=== PATIENT | male | born 1955 | race Caucasian/White ===

== ENCOUNTER 2021-05-01 22:07 | Inpatient (IN) | payer OTHER, MEDICARE ==
[~2021-05-01] VITALS: Ht 185.4 cm; Wt 101.7 kg
[~2021-05-01 22:07] MED LIST: ATEN50 PO; HCTZ; HYDROCODONE; LISI5 PO; SIMV10 PO
[2021-05-01] MEDS ORDERED: ATOR40TA PO (22:57)
[2021-05-01] MEDS ORDERED: ATEN25 PO (22:58)
[2021-05-01] MEDS ORDERED: CHLO25B PO (22:58)
[2021-05-01] MEDS ORDERED: VITAMIN D325 MC3 PO (22:59)
[2021-05-01] MEDS ORDERED: CLOP75 PO (23:00)
[2021-05-01] MEDS ORDERED: Vitamin B-12100 MCG PO (23:00)
[2021-05-01] MEDS ORDERED: FISH OIL-VIT D1 EACH PO (23:01)
[2021-05-01] MEDS ORDERED: Colace100 MG PO (23:01)
[2021-05-01] MEDS ORDERED: Norco 10-325 T1 EACH PO (23:02)
[2021-05-01] MEDS ORDERED: Prinivil10 MG PO (23:03)
[2021-05-01] MEDS ORDERED: HYDHCL25 PO (23:03)
[2021-05-01] MEDS ORDERED: B-1100 M1 PO (23:04)
[2021-05-01] MEDS ORDERED: POTA10T PO (23:04)
[2021-05-01 23:37] LABS: Hematocrit 46.1 % (37.0-53.0); Hemoglobin 16.3 g/dL (13.5-17.5); Mean Corpuscular HGB 33.9 pg (26.0-34.0); Mean Corpuscular HGB Conc 35.4 g/dL (31.5-36.5); Mean Corpuscular Volume 96 fL (80-100); Platelet Count 247 K/mm3 (150-400); RDW Coefficient Variation 12.1 % (11.7-14.2); RDW Standard Deviation 42.8 fL (35.1-46.3); Red Blood Cell Count 4.81 M/mm3 (4.30-5.90); White Blood Cell Count 31.51 K/mm3 (4.00-11.30)
[2021-05-01 23:50] LABS: Alanine Aminotransfer (ALT/SGP 40 U/L (12-78); Albumin, Blood 3.8 g/dL (3.4-5.0); Alk Phos 69 U/L (50-136); Anion Gap 13 mmol/L (6-16); Aspartate Aminotrans (AST/SGOT 28 U/L (12-37); Bilirubin, Total 0.3 mg/dL (0.1-1.0); Blood Urea Nitrogen 14 mg/dL (8-24); Bun/Creatinine Ratio 14.1 (12.0-20.0); CO2, Blood 24 mmol/L (21-32); Calcium, Blood 8.9 mg/dL (8.5-10.1); Chloride, Blood 103 mmol/L (98-108); Ethanol (Alcohol), Blood, Med 232 mg/dL; Globulin, Blood 3.7 g/dL (2.2-4.0); Glomerular Filtration Rate >60 (60-); Glucose, Blood 124 mg/dL (70-99); Potassium, Blood 3.2 mmol/L (3.5-5.5); Sodium, Blood 140 mmol/L (136-145); Total Protein, Blood 7.5 g/dL (6.4-8.2)
[2021-05-01 23:53] LABS: International Normalized Ratio 1.05
[2021-05-01 23:57] LABS: BAND PERCENT MAN 2 % (0-8); BASOPHILS ABSOLUTE MAN 0.31 K/mm3 (0.00-0.23); BASOPHILS PERCENT MAN 1 % (0-2); EOSINOPHILS PERCENT MAN 0 % (0-6); LYMPHOCYTES ABSOLUTE MAN 1.89 K/mm3 (0.84-5.20); LYMPHOCYTES PERCENT MAN 6 % (21-46); MONOCYTES ABSOLUTE MAN 0.63 K/mm3 (0.16-1.47); MONOCYTES PERCENT MAN 2 % (4-13); NEUTROPHILS ABSOLUTE MAN 28.67 K/mm3 (1.96-9.15); SEG NEUTROPHILS PERCENT MAN 89 % (41-73); TOTAL CELLS COUNTED 100
[2021-05-02 00:43] LABS: Influenza A, PCR NEGATIVE (NEGATIVE); Influenza B, PCR NEGATIVE (NEGATIVE); Resp Syncytial Virus, PCR NEGATIVE (NEGATIVE); SARS-Cov-2 (COVID-19) PCR, MMC NEGATIVE (NEGATIVE)
--- NOTE | 2021-05-02 02:10 | NUR ---
PT ADMITTED FROM ER FOR A LEFT HIP FX AT APPROX 0145. PT A&O X4. INTOXICATED, HOWEVER RESPONDING TO QUESTIONS APPROPRIATLY. LEFT LEG SHORTENED AND EXTERNALLY ROTATED. CAP REFILL WNL. PULSES PAPABLE. PT REPORTS 2/10 PAIN AT REST AND 8/10 PAIN WITH MOVEMENT. PT MEDICATED WITH DILAUDID PER EMAR AND REPOSITIONED FOR COMFORT.
[2021-05-02 09:42] LABS: BASOPHILS ABSOLUTE AUTO 0.04 K/mm3 (0.00-0.23); BASOPHILS PERCENT AUTO 0 % (0-2); EOSINOPHILS PERCENT AUTO 0 % (0-6); Hematocrit 41.9 % (37.0-53.0); Hemoglobin 14.9 g/dL (13.5-17.5); IMMATURE GRAN PERCENT AUTO 1 % (0-1); LYMPHOCYTES ABSOLUTE AUTO 2.05 K/mm3 (0.84-5.20); LYMPHOCYTES PERCENT AUTO 10 % (21-46); MONOCYTES ABSOLUTE AUTO 1.89 K/mm3 (0.16-1.47); MONOCYTES PERCENT AUTO 9 % (4-13); Mean Corpuscular HGB 34.1 pg (26.0-34.0); Mean Corpuscular HGB Conc 35.6 g/dL (31.5-36.5); Mean Corpuscular Volume 96 fL (80-100); Mean Platelet Volume 10.8 fL (9.1-12.4); NEUTROPHILS ABSOLUTE AUTO 17.25 K/mm3 (1.96-9.15); NEUTROPHILS PERCENT AUTO 81 % (41-73); Platelet Count 233 K/mm3 (150-400); RDW Coefficient Variation 12.4 % (11.7-14.2); RDW Standard Deviation 43.6 fL (35.1-46.3); Red Blood Cell Count 4.37 M/mm3 (4.30-5.90); White Blood Cell Count 21.33 K/mm3 (4.00-11.30)
[2021-05-02 09:47] LABS: Anion Gap 8 mmol/L (6-16); Blood Urea Nitrogen 18 mg/dL (8-24); Bun/Creatinine Ratio 21.9 (12.0-20.0); CO2, Blood 25 mmol/L (21-32); Calcium, Blood 8.9 mg/dL (8.5-10.1); Chloride, Blood 106 mmol/L (98-108); Creatinine, Blood 0.82 mg/dL (0.60-1.20); Glomerular Filtration Rate >60 (60-); Glucose, Blood 110 mg/dL (70-99); Potassium, Blood 3.4 mmol/L (3.5-5.5); Sodium, Blood 139 mmol/L (136-145)
[2021-05-02] MEDS ORDERED: ASPI325 PO (11:39)
[2021-05-02] MEDS ORDERED: K-TAB ER20 ME1 PO (11:40)
[2021-05-02] MEDS ORDERED: NAPR500 PO (11:41)
[2021-05-02 13:15] LABS: U Amphetamine Screen Not Detected; U Barbituate Screen Not Detected; U Benzodiazapine Screen Not Detected; U Buprenorphine Screen Not Detected; U Cannabinoids Screen DETECTED; U Cocaine Screen Not Detected; U Methadone Screen Not Detected; U Methamphetamine Screen Not Detected; U Opiates Screen DETECTED; U Oxycodone Screen Not Detected; U Phencyclidine Screen Not Detected; U Propoxyphene Screen Not Detected
--- NOTE | 2021-05-02 16:39 | NUR ---
SHIFT SUMMARY PT A&OX4, VSS/RA. L HIP FRACTURE, 5 LB TRACTION ON. BEDREST. YARITZA PO. VOIDING/URINAL. PAIN TREATED WITH 1 MG DILAUDID AND 10 NORCO. PLAN FOR SURGERY TOMORROW AT 1230. CHLORHEXIDINE CLOTHS USED TO CLEAN PATIENT PRE-PROCEDURE. WILL REPORT TO ONCOMING NOC RN.
[2021-05-02 16:56] LABS: Source, Urine Clean Catch
[2021-05-02 16:59] LABS: Appearance, Urine Clear (Clear); Bilirubin, Urine Neg (Neg); Blood, Urine 2+ (Neg); Color, Urine Yellow (P-Yellow); Glucose Qualitative, Urine Neg (Neg); Ketones, Urine 3+ (Neg); Leukocyte Esterase, Urine Neg (Neg); Nitrite, Urine Neg (Neg); Protein, Urine 1+ (Neg); Urobilinogen, Urine NORM (Normal)
[2021-05-02 17:09] LABS: Bacteria Mod /hpf; Mucus Light (0-Heavy); Squamous Epithelial Cells Few /hpf (Few); White Blood Cells, Urine 0-2 /hpf (0-5)
--- NOTE | 2021-05-03 04:39 | NUR ---
PT IN BED AT THIS TIME WHERE HE REMAINS THROUGHOUT THE NIGHT AND IS RESTING COMFORTABLY IN STABLE CONDITION. HAS FRACTURED LEFT HIP POST FALL AND KEPT AFFECTED EXTREMITY IMMOBILIZED TO PREVENT FURTHER DAMAGE. HE IS ASSISTED WITH CARE AND ADLS, SKIN OVER LEFT HIP WAS WIPED WITH ANTISEPTIC WIPES IN PREP FOR SURGERY. HAS REPORTED PAIN IN THE AFFECTED EXTREMITY WHICH WAS RELIEVED BY POSITION CHANGE. PALPABLE PULSE AND CAP REFILL NOTED IN THE LEFT LOWER EXTREMITIES ON ASSESSMENT. PT WAS GIVEN HIS CALL LIGHT AND WAS URGED TO CALL FOR HELP WHEN ASSISTANCE IS NEEDED HE IS MONITORED.
[2021-05-03 04:40] LABS: BASOPHILS ABSOLUTE AUTO 0.05 K/mm3 (0.00-0.23); BASOPHILS PERCENT AUTO 0 % (0-2); EOSINOPHILS ABSOLUTE AUTO 0.16 K/mm3 (0.00-0.68); EOSINOPHILS PERCENT AUTO 1 % (0-6); Hemoglobin 12.1 g/dL (13.5-17.5); IMMATURE GRAN ABSOLUTE AUTO 0.08 K/mm3 (0.00-0.10); IMMATURE GRAN PERCENT AUTO 1 % (0-1); LYMPHOCYTES ABSOLUTE AUTO 2.74 K/mm3 (0.84-5.20); LYMPHOCYTES PERCENT AUTO 18 % (21-46); MONOCYTES ABSOLUTE AUTO 1.71 K/mm3 (0.16-1.47); MONOCYTES PERCENT AUTO 11 % (4-13); Mean Corpuscular HGB 33.8 pg (26.0-34.0); Mean Corpuscular HGB Conc 34.6 g/dL (31.5-36.5); Mean Corpuscular Volume 98 fL (80-100); Mean Platelet Volume 10.9 fL (9.1-12.4); NEUTROPHILS PERCENT AUTO 69 % (41-73); Platelet Count 173 K/mm3 (150-400); RDW Coefficient Variation 12.2 % (11.7-14.2); RDW Standard Deviation 44.1 fL (35.1-46.3); Red Blood Cell Count 3.58 M/mm3 (4.30-5.90); White Blood Cell Count 15.44 K/mm3 (4.00-11.30)
[2021-05-03 05:07] LABS: Anion Gap 6 mmol/L (6-16); Blood Urea Nitrogen 26 mg/dL (8-24); Bun/Creatinine Ratio 28.3 (12.0-20.0); CO2, Blood 28 mmol/L (21-32); Chloride, Blood 106 mmol/L (98-108); Creatinine, Blood 0.92 mg/dL (0.60-1.20); Glomerular Filtration Rate >60 (60-); Glucose, Blood 112 mg/dL (70-99); Potassium, Blood 3.9 mmol/L (3.5-5.5); Sodium, Blood 140 mmol/L (136-145)
--- NOTE | 2021-05-03 11:29 | NUR ---
PATIENT JUST LEFT FOR THE PROCEDURE.
--- NOTE | 2021-05-03 12:19 | NUR ---
PT IN PAIN 9/10 L HIP PT HAS PAIN MED ORDERS DR LAY NOTIFIESD OF PAIN AND VERBAL OK TO GIVE SCHEDULED DILAUDID FOR PAIN
--- NOTE | 2021-05-03 16:06 | NUR ---
PATIENT ARRIVED FROM PACU @1600 TODAY 05/03/21. POD 0 LEFT HIP GAMMA NAILING PATIENT IS ALERT AND ORIENTED X4 THOUGH IS SLEEPY BUT EASILY WOKEN UP. VS ARE WNL AND IS ON RA. PATIENT DENIES PAIN AT THIS TIME. HE IS ABLE TO MOVE FINGERS AND TOES. DENIES NUMBNESS AND TINGLING. THE 3 AQUACELS ON THE LEFT HIP ARE C/D/I. PEDAL PULSES ARE PALPABLE. CALL LIGHT WITHIN REACH.
[2021-05-04 04:46] LABS: BASOPHILS ABSOLUTE AUTO 0.02 K/mm3 (0.00-0.23); BASOPHILS PERCENT AUTO 0 % (0-2); EOSINOPHILS ABSOLUTE AUTO 0.02 K/mm3 (0.00-0.68); EOSINOPHILS PERCENT AUTO 0 % (0-6); Hematocrit 29.4 % (37.0-53.0); Hemoglobin 10.5 g/dL (13.5-17.5); IMMATURE GRAN ABSOLUTE AUTO 0.08 K/mm3 (0.00-0.10); IMMATURE GRAN PERCENT AUTO 1 % (0-1); LYMPHOCYTES ABSOLUTE AUTO 2.05 K/mm3 (0.84-5.20); LYMPHOCYTES PERCENT AUTO 13 % (21-46); MONOCYTES ABSOLUTE AUTO 1.63 K/mm3 (0.16-1.47); MONOCYTES PERCENT AUTO 10 % (4-13); Mean Corpuscular HGB 33.9 pg (26.0-34.0); Mean Corpuscular HGB Conc 35.7 g/dL (31.5-36.5); Mean Corpuscular Volume 95 fL (80-100); Mean Platelet Volume 10.9 fL (9.1-12.4); NEUTROPHILS PERCENT AUTO 77 % (41-73); Platelet Count 179 K/mm3 (150-400); RDW Standard Deviation 41.5 fL (35.1-46.3)
[2021-05-04 05:15] LABS: Anion Gap 6 mmol/L (6-16); Blood Urea Nitrogen 18 mg/dL (8-24); Bun/Creatinine Ratio 21.5 (12.0-20.0); CO2, Blood 28 mmol/L (21-32); Calcium, Blood 8.7 mg/dL (8.5-10.1); Chloride, Blood 103 mmol/L (98-108); Creatinine, Blood 0.84 mg/dL (0.60-1.20); Glomerular Filtration Rate >60 (60-); Glucose, Blood 115 mg/dL (70-99); Potassium, Blood 3.5 mmol/L (3.5-5.5); Sodium, Blood 137 mmol/L (136-145)
--- NOTE | 2021-05-04 05:30 | NUR ---
PT IS IN BED NOW AND IS RESTING QUIETLY. HE HAS WOKEN UP SOMETIME DURING THE NIGHT DISCOMBOBULATED AND WAS NOT SURE WHERE HE WAS OR WHAT HE WAS DOING. HE WAS REASSURRED AND ASSISTED WITH REPOSITIONING IN BED. WAS MEDICATED WITH HYDROCODONE FOR LEFT PAIN POST LEFT HIP SURGERY, WHICH HE IS RECOVERING FROM, NO OTHER CONCERNS. DRESSING AT THE INCISION SITE IN THE LEFT HIP NOTED, MOVEMENT IN THE AFFECTED EXTREMITY IS ACCEPTABLE TO CONDITION. GOOD CIRCULATION NOTED EVIDENCED BY PALPABLE PEDAL PULSE IN THE LEFT FOOT AND CAP REFILL < 3 SECS. ASSISTED WITH CARE AND ADLS, MEDICATED INDICATED. CALL LIGHT GIVEN TO HIM AND REMINDED TO CALL FOR HELP WHEN ASSISTANCE IS NEEDED HE IS MONITORED.
--- NOTE | 2021-05-04 11:22 | NUR ---
1005 DR VELAZCO HERE TO SEE PATIENT, PATIENT IS ATTEMPTING TO GET SELF OOB WITHOUT CALLING FOR ASSIST. TAB ALARM IN PLACE AND CALL LIGHT IN REACH. DISCUSSED WITH PATIENT NEED TO CALLL FOR ASSISTANCE. DISCUSSED WITH DR VELAZCO PTS VISIAL HALLUCINATINS, ORIENTATION STATUS AND IMPULSIVENESS.
--- NOTE | 2021-05-04 11:24 | NUR ---
PT RESTLEES SITTING IN CHAIR PERFORMING EXCERCISES THAT PT LEFT FOR HIM THIS MORNING. DISCUSSED WITH PATIENT THAT HE NEEDS TO TAKE BREAKS BETWEEN EPISODES OF THESE EXCERCISES. PT STARTING EXCERCISES AGAIN X2 WHILE THIS RN IS STILL PRESENT IN ROOM. EXCERCISE HANDOUT MOVED OUT OF PATIENTS SIGHT AND REINSTRUCTED TO TAKE BREAKS BETWEEN EXCERCISE SESSIONS AND THAT HE SHOULD BREAK UNTIL PT RETURNS TO SEE HIM THIS AFTERNOON
--- NOTE | 2021-05-04 11:53 | NUR ---
Pt. was alert and sitting in a chair. Pt. welcomed my visit. Pt. had a positive attidue but was clearly dealing with visceral pain. Normalized pts. experience. Facilitated a life review, explored issues of nea and belief. Pt. was polite and permitted me to pray with him. Pt. verbalized the present reality of his pain. Prayed with pt. Pt. verbalized gratitude for having a visitor. I will monitor.
--- NOTE | 2021-05-04 14:18 | NUR ---
1330 WHEN RN ENTERED ROOM PT PARTIALLY STANDING WITH 1 KNEE ON BED. PT HAD REMOVED OWN TAB ALARM, TAKEN BRAKES OFF OF RECLINER CHAIR AND LEFT PAS IN PLACE, PT RESTLESS MAKING MULTIPLE ATTEMPTS TO STAND AFTER RN ASKED HIM TO SIT ON BED.. PT WALKER ON OPPOSITE SIDE OF ROOM. DISCUSSED WITH PATIENT THAT HE SHOULD CALL FOR ASSIST AND THAT HE IS TOE TOUCH WEIGHT BEARING. PT BECAME SPOKE WITH RAISED VOICE AND STATES "I CAN WALK JUST FINE I WILL SHOW YOU" AND STOOD SELF UP AND STATED HE WILL WALK BACK TO THE CHAIR. PT ORIENTED TO PERSON, PLACE AND TIME. REINSTRUCTED ON WEIGHT BEARING PRECAUTIONS AND STATES HE CAN WALK JUST FINE. ASSISTED PATIENT BACK TO BED, BED ALARM AND CALL LIGHT N PLACE, PT INSTRUCTED TO CALL FOR ASSIST. LIBRIUM GIVEN
--- NOTE | 2021-05-04 17:06 | NUR ---
PT IMPULSIVE, ATTEMPTS TO GET SELF OUT OF BED AND INSISTENT THAT HE IS ABLE TO WALK JUST FINE. PT ORIENTED TO PERSON PLACE AND TIME AT PRESENT BUT DOES REPORT AT TIMES THAT HE SEES DUST FALLING FROM THE CORNER AND THIS RN HAS SEEN NO DUST IN PATIENT ROOM, PT TALKING WHEN NO ONE PRESENT IN ROOM BUT WHEN ASKED WHO HE IS TALKING TO JUST LAUGHS. LEFT HIP DRESSIING X2 CLEAN DRY AND INTACT, PT HAS REMOVED RICKY WRAP TO LEFT HIP X3 THIS SHIFT. PTS HERE FOR APPROX 30 MIN AND REQUESTED TO SPEAK WITH BOAT CAMP OPERATOR. WIFES PHONE NUMBER OBTAINED AND I SPOKE WITH HILARIA YEBOAH RN REGARDING WIFES REQUEST TO SPEAK WITH HER. PT REPORTS PAIN IS ADEQUATELY CONTROLLED WITH PO MEDS. PT AT TIMES IS INSISTENT WITH REPEATEDLY PERFORMING EXCERCISES SHOWN ON PT HANDOUT.BED ALARM IN PLACE AND CALL LIGHT IN REACH.
--- NOTE | 2021-05-04 23:25 | NUR ---
PT BECAME AGITATED AND CLIMBED OUT OF BED. WHEN STAFF STARTED TO HELP HIM BACK TO BED HE BECAME COMBATIVE AND STARTED TO SWING HIS FISTS. DR FRANCO WAS CALLED, PT CONDITION AND BEHAVIOR REPORTED TO HIM. THE DR GAVE ORDER FOR HALDOL 3-5MG IV PRN Q6H. SOFT WRIST RESTRAINT MAY ALSO BE APPLIED ON THE PT WRISTS AFTER THE MED IS ADMINISTERED TO HIM PER DR FRANCO. AFTER THE MED TAKES EFFECT AND PT BECOMES MORE QUIET THEN THE RESTRATNTS CAN COME OFF. PT WAS ASSISTED BACK IN BED WITH SECURITY PERSONEL ASSISTANCE, MED ADMINISTERED TO HIM AND SOFT RESTRAINT APPLIED ON HIS WRISTS FOR HIS SAFETY HE HAS JUST HAD HIS LEFT HIP FX REPAIRED. STAFF REMAINED NEARBY TO CONTINUE TO MONITOR HIM. THE DOCTOR SAID TO DO A BLADDER SCAN ON HIM. 180CC OF URINE NOTED ON BLADDER SCAN, URINAL PLACED BY THE PT URINE MEATUS AND WAS URGED TO VOID, HE ONLY DRIBBLED DROPS OF URINE. HIS URINAL WAS EMPTIED A COUPLE TIMES EARLIER IN THE SHIFT. HE PREVIOUSLY DENIED THE URGE TO VOID. HE IS NOW IN BED AND IS BEING MONITORED THE HALDOL IS KICKING IN.
--- NOTE | 2021-05-05 03:38 | NUR ---
Pt continues to be agitated and exhibited s&s of alcohol withdrawal as indicated by by hallucination,increased HR and BP & mild diaphoresis. CIWA assessment marycarmen above 10. Order to give him an additional 2mg of IV lorazepam obtained, as haldol previously administered to him to help with agitation was not effective
[2021-05-05 04:44] LABS: BASOPHILS ABSOLUTE AUTO 0.07 K/mm3 (0.00-0.23); BASOPHILS PERCENT AUTO 0 % (0-2); EOSINOPHILS ABSOLUTE AUTO 0.16 K/mm3 (0.00-0.68); EOSINOPHILS PERCENT AUTO 1 % (0-6); Hematocrit 30.5 % (37.0-53.0); Hemoglobin 10.9 g/dL (13.5-17.5); IMMATURE GRAN ABSOLUTE AUTO 0.09 K/mm3 (0.00-0.10); IMMATURE GRAN PERCENT AUTO 1 % (0-1); LYMPHOCYTES ABSOLUTE AUTO 2.74 K/mm3 (0.84-5.20); LYMPHOCYTES PERCENT AUTO 15 % (21-46); MONOCYTES ABSOLUTE AUTO 1.83 K/mm3 (0.16-1.47); MONOCYTES PERCENT AUTO 10 % (4-13); Mean Corpuscular HGB 34.3 pg (26.0-34.0); Mean Corpuscular HGB Conc 35.7 g/dL (31.5-36.5); Mean Corpuscular Volume 96 fL (80-100); Mean Platelet Volume 10.9 fL (9.1-12.4); NEUTROPHILS ABSOLUTE AUTO 13.47 K/mm3 (1.96-9.15); NEUTROPHILS PERCENT AUTO 73 % (41-73); Platelet Count 208 K/mm3 (150-400); RDW Standard Deviation 41.6 fL (35.1-46.3); Red Blood Cell Count 3.18 M/mm3 (4.30-5.90); White Blood Cell Count 18.36 K/mm3 (4.00-11.30)
[2021-05-05 05:37] LABS: Anion Gap 9 mmol/L (6-16); Blood Urea Nitrogen 21 mg/dL (8-24); Bun/Creatinine Ratio 25.3 (12.0-20.0); CO2, Blood 25 mmol/L (21-32); Calcium, Blood 8.9 mg/dL (8.5-10.1); Chloride, Blood 106 mmol/L (98-108); Creatinine, Blood 0.83 mg/dL (0.60-1.20); Glomerular Filtration Rate >60 (60-); Glucose, Blood 120 mg/dL (70-99); Potassium, Blood 3.8 mmol/L (3.5-5.5); Sodium, Blood 140 mmol/L (136-145)
--- NOTE | 2021-05-05 07:01 | NUR ---
spoke with dr wynn re CIWA 19 and vs. pt agitated in hard restraints, diapjoretic and pulling at restraints. pt able to state name and birthdate but cannot tell me where he is or why he is here. orders received to transfer to ICU
--- NOTE | 2021-05-05 07:08 | NUR ---
PT HAS BECOME AGITATED AGAIN AFTER HE WOKE UP FROM A NAP. HE IS TO MOVE TO ICU. HIS WAS CALLED AND UPDATED ON HIS BEHAVIOR. WAS ASLO ADVISED THAT THE PT WILL BE MOVED TO THE ICU FOR CLOSER OBSERVATION.
--- NOTE | 2021-05-05 07:25 | NUR ---
0720 transfered to icu via bed inhard wrist restraints
--- NOTE | 2021-05-05 07:30 | NUR ---
PT TRANSFERED FROM SURGICAL FLOOR TO ICU 1. PT IS ORIENTED TO SELF ONLY AND IS AGITATED. UNABLE TO FOLLOW COMMANDS. DIAPHORETIC AND THRASHING AROUND IN BED. ATIVAN GIVEN. SEE CIWA. AFTER ATIVAN PT IS CALMING A LITTLE. DR. VELAZCO WILL SEE PT SHORTLY. PT HAS SURGICAL DRESSINGS TO L HIP AND BRUISING IN GROIN.
[2021-05-05 11:33] LABS: Source, Urine Catheter
[2021-05-05 11:43] LABS: Appearance, Urine Clear (Clear); Bilirubin, Urine Neg (Neg); Blood, Urine 2+ (Neg); Color, Urine Yellow (P-Yellow); Glucose Qualitative, Urine Neg (Neg); Ketones, Urine 1+ (Neg); Leukocyte Esterase, Urine 1+ (Neg); Nitrite, Urine Neg (Neg); Protein, Urine 2+ (Neg); Specific Gravity, Urine 1.025 (1.003-1.022); Urobilinogen, Urine NORM (Normal)
[2021-05-05 12:01] LABS: Squamous Epithelial Cells Few /hpf (Few)
[2021-05-05 12:02] LABS: Amorphous Light (0-Heavy); Bacteria Few /hpf; Mucus Light (0-Heavy)
[2021-05-05 15:23] LABS: PCO2 Arterial 80.8 mmHg (35-45); PO2 Arterial 402 mmHg (80-100)
--- NOTE | 2021-05-05 17:59 | NUR ---
SUMMARY PT WAS TRANSFERED FROM SURGICAL FLOOR TO ICU THIS AM. PT IN ETOH WD AFTER HIP SURGERY. PT WAS MEDICATED WITH ATIVAN AND EVENTUALLY PLACED ON PRECEDEX GTT TO HELP WITH AGITATION AND REST HIS HIP. THIS AFTERNOON PT WAS USING ACCESSORY MUSCLES WITH RESP. PRECEDEX WAS STOPPED. PLACED ON BIPAP AND ABG OBTAINED. PT WAS ASYNCHRONOUS WITH BIPAP AND WAS NOT GETTING ADEQUATE TIDAL VOLUMES. PT WAS THEN INTUBATED FOR AIRWAY PROTECTION. AFTER INTUBATION PT WAS MOVING ARMS AND COUGHING, PROPOFOL WAS STARTED. OG PLACED, CXR, AND LABS DONE. WAS IN TO SEE PT AND WAS UPDATED.
[2021-05-05 18:02] LABS: PCO2 Arterial 42.6 mmHg (35-45); PO2 Arterial 181 mmHg (80-100); pH Blood Arterial 7.45 (7.35-7.45)
[2021-05-05 18:10] LABS: Anion Gap 8 mmol/L (6-16); Blood Urea Nitrogen 18 mg/dL (8-24); Bun/Creatinine Ratio 23.1 (12.0-20.0); CO2, Blood 24 mmol/L (21-32); Calcium, Blood 8.6 mg/dL (8.5-10.1); Chloride, Blood 108 mmol/L (98-108); Creatinine, Blood 0.78 mg/dL (0.60-1.20); Glomerular Filtration Rate >60 (60-); Glucose, Blood 127 mg/dL (70-99); Magnesium, Blood 2.4 mg/dL (1.6-2.4); Phosphorus, Blood 4.4 mg/dL (2.5-4.9); Sodium, Blood 140 mmol/L (136-145)
--- NOTE | 2021-05-05 20:00 | NUR ---
ASSUMED CARE AFTER REPORT RECV'D AT 1845 Assessment complete. propafol infusing at 30 mcg, responds to pain and will pull at restraints with stimulation but quickly calms. does not attempt to follow requests or open eyes. Skin warm and dry. no signs of withdrawl symptoms. tolerating vent with no noted distress at this time.
[2021-05-06 03:44] LABS: PCO2 Arterial 42.5 mmHg (35-45); PO2 Arterial 80.5 mmHg (80-100); pH Blood Arterial 7.47 (7.35-7.45)
[2021-05-06 03:51] LABS: BASOPHILS ABSOLUTE AUTO 0.04 K/mm3 (0.00-0.23); BASOPHILS PERCENT AUTO 0 % (0-2); EOSINOPHILS ABSOLUTE AUTO 0.26 K/mm3 (0.00-0.68); EOSINOPHILS PERCENT AUTO 3 % (0-6); Hemoglobin 9.9 g/dL (13.5-17.5); IMMATURE GRAN ABSOLUTE AUTO 0.06 K/mm3 (0.00-0.10); IMMATURE GRAN PERCENT AUTO 1 % (0-1); LYMPHOCYTES ABSOLUTE AUTO 2.17 K/mm3 (0.84-5.20); LYMPHOCYTES PERCENT AUTO 21 % (21-46); MONOCYTES ABSOLUTE AUTO 1.15 K/mm3 (0.16-1.47); MONOCYTES PERCENT AUTO 11 % (4-13); Mean Corpuscular HGB Conc 35.4 g/dL (31.5-36.5); Mean Corpuscular Volume 99 fL (80-100); Mean Platelet Volume 10.4 fL (9.1-12.4); NEUTROPHILS ABSOLUTE AUTO 6.73 K/mm3 (1.96-9.15); NEUTROPHILS PERCENT AUTO 65 % (41-73); Platelet Count 206 K/mm3 (150-400); RDW Coefficient Variation 12.4 % (11.7-14.2); RDW Standard Deviation 44.6 fL (35.1-46.3); Red Blood Cell Count 2.83 M/mm3 (4.30-5.90); White Blood Cell Count 10.41 K/mm3 (4.00-11.30)
[2021-05-06 05:00] LABS: Alanine Aminotransfer (ALT/SGP 38 U/L (12-78); Albumin, Blood 2.6 g/dL (3.4-5.0); Albumin/Globulin Ratio 0.9 (0.8-1.8); Alk Phos 59 U/L (50-136); Anion Gap 8 mmol/L (6-16); Aspartate Aminotrans (AST/SGOT 52 U/L (12-37); Bilirubin, Total 0.8 mg/dL (0.1-1.0); Blood Urea Nitrogen 19 mg/dL (8-24); Bun/Creatinine Ratio 20.9 (12.0-20.0); CO2, Blood 29 mmol/L (21-32); Calcium, Blood 8.6 mg/dL (8.5-10.1); Chloride, Blood 106 mmol/L (98-108); Creatinine, Blood 0.91 mg/dL (0.60-1.20); Globulin, Blood 2.9 g/dL (2.2-4.0); Glomerular Filtration Rate >60 (60-); Glucose, Blood 93 mg/dL (70-99); Phosphorus, Blood 2.7 mg/dL (2.5-4.9); Potassium, Blood 3.3 mmol/L (3.5-5.5); Sodium, Blood 143 mmol/L (136-145); Total Protein, Blood 5.5 g/dL (6.4-8.2)
--- NOTE | 2021-05-06 05:36 | NUR ---
MEDICATED NEEDED THROUGH NIGHT FOR SIGNS OF PAIN. AT THIS TIME SEDATION ON HOLD FOR BREATHING TRIAL FOR WEINING OFF VENT. TOLERATING WELL. ELEVATED TROPONIN CALLED TO PROVIDER MASKING MACHINE FEEDER, NO CHANGES NOTED ON REPAIR SERVICE DISPATCHER.
--- NOTE | 2021-05-06 08:58 | NUR ---
PT INTUBATED. OFF SEDATION THIS AM WITH ASSESSMENT. PT WAS ABLE TO OPEN EYE'S TO COMMAND AND NOD YES OR NO TO QUESTIONS. DILAUDID GIVEN FOR PAIN IN L HIP. PT WAS STARTING TO COUGH A LOT, BP INCREASING, AND HR INCREASING. RESTARTED PROPOFOL FOR SEDATION AND PLACED PT BACK ON AC SETTINGS ON THE VENT. UPDATED THIS AM.
--- NOTE | 2021-05-06 18:21 | NUR ---
SUMMARY PT INTUBATED AND SEDATED. PT WILL OPEN EYE'S ON COMMAND AND NODS YES OR NO TO QUESTIONS. PT WILL GRIMACE AT TIMES AND WILL NOD YES OR NO TO PAIN. DILAUDID GIVEN. DID WELL DURING WEAN TRIAL. PLACED BACK ON AC SETTINGS WHEN HE STARTED COUGHING A LOT. TUBE FEEDS STARTED TODAY. NO OTHER CHANGES THIS SHIFT.
--- NOTE | 2021-05-06 18:23 | NUR ---
ECHOCARDIOGRAM COMPLETE
--- NOTE | 2021-05-06 20:00 | NUR ---
assumed care after report recv'd. assessment complete. sedation increased due to continous setting off vent alarms. left hip dressing intact. shakes head no when asked if in pain
[2021-05-07 03:21] LABS: BASOPHILS ABSOLUTE AUTO 0.05 K/mm3 (0.00-0.23); BASOPHILS PERCENT AUTO 1 % (0-2); EOSINOPHILS PERCENT AUTO 6 % (0-6); Hematocrit 29.1 % (37.0-53.0); Hemoglobin 9.9 g/dL (13.5-17.5); IMMATURE GRAN ABSOLUTE AUTO 0.07 K/mm3 (0.00-0.10); IMMATURE GRAN PERCENT AUTO 1 % (0-1); LYMPHOCYTES ABSOLUTE AUTO 2.46 K/mm3 (0.84-5.20); LYMPHOCYTES PERCENT AUTO 23 % (21-46); MONOCYTES ABSOLUTE AUTO 1.06 K/mm3 (0.16-1.47); MONOCYTES PERCENT AUTO 10 % (4-13); Mean Corpuscular Volume 100 fL (80-100); Mean Platelet Volume 10.5 fL (9.1-12.4); NEUTROPHILS ABSOLUTE AUTO 6.66 K/mm3 (1.96-9.15); NEUTROPHILS PERCENT AUTO 61 % (41-73); Platelet Count 210 K/mm3 (150-400); RDW Coefficient Variation 12.7 % (11.7-14.2); RDW Standard Deviation 45.7 fL (35.1-46.3); Red Blood Cell Count 2.91 M/mm3 (4.30-5.90)
[2021-05-07 04:14] LABS: Anion Gap 7 mmol/L (6-16); Blood Urea Nitrogen 23 mg/dL (8-24); CO2, Blood 29 mmol/L (21-32); Calcium, Blood 8.6 mg/dL (8.5-10.1); Chloride, Blood 107 mmol/L (98-108); Creatinine, Blood 0.85 mg/dL (0.60-1.20); Glomerular Filtration Rate >60 (60-); Glucose, Blood 113 mg/dL (70-99); Phosphorus, Blood 3.5 mg/dL (2.5-4.9); Potassium, Blood 3.3 mmol/L (3.5-5.5); Sodium, Blood 143 mmol/L (136-145); Troponin I 0.229 ng/mL (0.000-0.040)
--- NOTE | 2021-05-07 06:51 | NUR ---
awake and alert, becoming agitated, wanting ETT out. unable to redirect. medication given for agitation.
--- NOTE | 2021-05-07 17:32 | NUR ---
SHIFT SUMMARY PT REMAINS INTUBATED AND SEDATED THIS SHIFT. PT WITH ESCALATING AGITATION THIS AM DURING SEDATION VACATION. PT ABLE TO NOD APPROPRIATELY TO 1-2 SIMPLE QUESTIONS, OTHERWISE NOT FOLLOWING DIRECTIONS. PROPOFOL RESTARTED THIS AM AND IS INFUSING AT 50 MCG/KG/MIN. VENT SETTINGS BACK TO AC 14, TV 450, PEEP 5, FIO2 30% AFTER SEDATION VACATION. OGT REMAINS IN PLACE WITH TF INFUSING AT 10 ML/HR. CUNN[place]HAM REMAINS IN PLACE WITH MINIMAL AMOUNT OF DARK YELLOW URINE OUTPUT THIS SHIFT. SBW RESTRAINTS REMAIN IN PLACE. VITAL SIGNS HAVE REMAINED STABLE. PT FAMILY UPDATED VIA PHONE THIS SHIFT. WILL CONTINUE TO MONITOR AND REPORT OFF TO ONCOMING RN.
--- NOTE | 2021-05-08 02:43 | NUR ---
Very diaphoretic, skin cool to touch. blood sugar check and wnl. ativan given for possible withdrawl symptoms. weaning down on propofol, will government affairs researcher to precedex for breathing trial
[2021-05-08 04:20] LABS: Anion Gap 5 mmol/L (6-16); Blood Urea Nitrogen 19 mg/dL (8-24); Bun/Creatinine Ratio 21.3 (12.0-20.0); CO2, Blood 30 mmol/L (21-32); Calcium, Blood 8.7 mg/dL (8.5-10.1); Chloride, Blood 108 mmol/L (98-108); Creatinine, Blood 0.89 mg/dL (0.60-1.20); Glomerular Filtration Rate >60 (60-); Glucose, Blood 110 mg/dL (70-99); Potassium, Blood 3.4 mmol/L (3.5-5.5); Sodium, Blood 143 mmol/L (136-145)
--- NOTE | 2021-05-08 05:50 | NUR ---
Rested with sedation through night. Propofol weined off this am and precedex started for vent spontaneous breathing trial. Precedex infusing at 0.4 at this time. Responds to verbal stimuli, is calm and tolerating
[2021-05-08 06:29] LABS: BASOPHILS ABSOLUTE AUTO 0.03 K/mm3 (0.00-0.23); BASOPHILS PERCENT AUTO 0 % (0-2); EOSINOPHILS PERCENT AUTO 4 % (0-6); Hematocrit 28.2 % (37.0-53.0); Hemoglobin 9.6 g/dL (13.5-17.5); IMMATURE GRAN ABSOLUTE AUTO 0.06 K/mm3 (0.00-0.10); IMMATURE GRAN PERCENT AUTO 1 % (0-1); LYMPHOCYTES ABSOLUTE AUTO 1.59 K/mm3 (0.84-5.20); LYMPHOCYTES PERCENT AUTO 17 % (21-46); MONOCYTES PERCENT AUTO 11 % (4-13); Mean Corpuscular HGB 33.6 pg (26.0-34.0); Mean Corpuscular Volume 99 fL (80-100); Mean Platelet Volume 10.5 fL (9.1-12.4); NEUTROPHILS PERCENT AUTO 67 % (41-73); Platelet Count 248 K/mm3 (150-400); RDW Coefficient Variation 12.6 % (11.7-14.2); RDW Standard Deviation 45.1 fL (35.1-46.3); Red Blood Cell Count 2.86 M/mm3 (4.30-5.90); White Blood Cell Count 9.38 K/mm3 (4.00-11.30)
--- NOTE | 2021-05-08 10:09 | NUR ---
ALYSIA CALLED, UPDATED PATIENT CONDITIONS, SHE WILL BE IN TODAY AT 2 TO VISIT
--- NOTE | 2021-05-08 13:59 | NUR ---
AT BEDSIDE VISTING PATIENT
--- NOTE | 2021-05-08 18:03 | NUR ---
PATIENT ALERT, FOLLOWING DIRECTIONS, ANSWERING YES/NO WITH HEAD, VERY [place], AF[place]RILE, UNABLE TO CLEARLY MAKE NEEDS KNOWN TO TO ET TUBE, POSSIBLE EXTUBATION TOMORROW. SBT ALL DAY, LARGE EPISODES OF APNEA, REPORTED TO DR LEW AND DR CRUZ, LS DIMINISHED, STRONG COUGH, SCANT SPUTUMN FROM ET TUBE, ORAL SECRETIONS HAVE INCREASED. MEDICATED WITH MOM FOR BM, CUNNINGHAM CATHETER DRAINING TO GRAVITY, DARK CLEAR EDWARD. ALYSIA AND SISTER RAMIREZ UPDATED TODAY, PATIENT ANSWERED YES TO TALK TO BOTH. INCREASED OG FEEDS TO 55 ML/HR, TKO NS, PRECIDEX GTT AT 0.4 MCG, K+ THIS AM 3.4, 20 MEQ KCL INFUSED. REPOSITIONED THROUGH OUT THE DAY, HIP PRECAUTIONS, LEFT HIP DRSG X2, UPPER DRSG DARK DRIED DRAINAGE MARKED, AQUASELS IN PLACE, WILL RELAY TO PM RN, WCTM
--- NOTE | 2021-05-08 18:11 | NUR ---
DR LEW ROUNDED ON PATIENT REPORTED APNEA EPISODES ON SBT, REPLACED k+, AND NO MAGNESIUM LAB DRAWN, NO FURTHER ORDERS GIVEN, POSSIBLE EXTUBATION TOMORROW
--- NOTE | 2021-05-08 20:00 | NUR ---
Assumed care after report recv'd assessment complete. resting with eyes closed but opens eyes with verbal. nods head to yes/no questions. precedex titrated down due to bradycardia. vent settings on spontaneous and tolerating well.
--- NOTE | 2021-05-08 22:00 | NUR ---
Dressing changed to left hip. precedex titrated down due to bradycardia, continues to be calm with no distress. periods of apnea, kicking in AC mode of vent.
[2021-05-09 03:39] LABS: BASOPHILS ABSOLUTE AUTO 0.04 K/mm3 (0.00-0.23); BASOPHILS PERCENT AUTO 1 % (0-2); EOSINOPHILS ABSOLUTE AUTO 0.38 K/mm3 (0.00-0.68); EOSINOPHILS PERCENT AUTO 4 % (0-6); Hematocrit 29.5 % (37.0-53.0); Hemoglobin 9.7 g/dL (13.5-17.5); IMMATURE GRAN PERCENT AUTO 1 % (0-1); LYMPHOCYTES ABSOLUTE AUTO 2.33 K/mm3 (0.84-5.20); LYMPHOCYTES PERCENT AUTO 27 % (21-46); MONOCYTES ABSOLUTE AUTO 1.04 K/mm3 (0.16-1.47); MONOCYTES PERCENT AUTO 12 % (4-13); Mean Corpuscular HGB 33.1 pg (26.0-34.0); Mean Corpuscular HGB Conc 32.9 g/dL (31.5-36.5); Mean Corpuscular Volume 101 fL (80-100); Mean Platelet Volume 10.2 fL (9.1-12.4); NEUTROPHILS ABSOLUTE AUTO 4.84 K/mm3 (1.96-9.15); NEUTROPHILS PERCENT AUTO 55 % (41-73); Platelet Count 246 K/mm3 (150-400); RDW Coefficient Variation 12.9 % (11.7-14.2); Red Blood Cell Count 2.93 M/mm3 (4.30-5.90); White Blood Cell Count 8.73 K/mm3 (4.00-11.30)
[2021-05-09 03:59] LABS: Anion Gap 2 mmol/L (6-16); Blood Urea Nitrogen 27 mg/dL (8-24); Bun/Creatinine Ratio 30.2 (12.0-20.0); CO2, Blood 31 mmol/L (21-32); Calcium, Blood 8.7 mg/dL (8.5-10.1); Chloride, Blood 111 mmol/L (98-108); Glomerular Filtration Rate >60 (60-); Glucose, Blood 129 mg/dL (70-99); Magnesium, Blood 2.5 mg/dL (1.6-2.4); Phosphorus, Blood 3.6 mg/dL (2.5-4.9); Potassium, Blood 3.6 mmol/L (3.5-5.5); Sodium, Blood 144 mmol/L (136-145)
--- NOTE | 2021-05-09 05:23 | NUR ---
Vent on SBT through out shift. Tolerated well, at start of night had couple periods of apnea triggering AC setting. None since midnight. Precedex titrated for low heart rate and low b/p then back up for agitation as needed. Some periods of agiatation able to calm with conversation. Is wanting ETT out, educated on weaning protocol. Medicated as needed for pain.
--- NOTE | 2021-05-09 08:56 | NUR ---
EXTUBATION 0812 Patient extubated successfully at 0812. On RA SPO2 > 90%. Pt A/O to being in hospital, following directions, and states date at may 02, 2021. Updated on current events. VSS. Will continue to monitor. TF has been stopped.
--- NOTE | 2021-05-09 09:38 | NUR ---
Care Assumed 0700 Precedex 0.3 MCG/KG/HR, when care assumed, stopped prior to extubation. Vent setting PS 7/5, FIO2 30%. Patient successfully extubated at 0812. Continues to follow commands, A/O to location, and year. Would like to speak to on phone, will call. TF stopped. Diamond in place with dark ginny output. On 2 L via NC, SPO2 > 90%, LS clear. BT active x 4. Left hip dressing C/D/I. Patient denies pain. VSS. NSR. Will continue to monitor.
--- NOTE | 2021-05-09 14:14 | NUR ---
Update- Provider Visit Dr. Leon in to see patient and status changed to PCU. Dr. Thomas in to see patient and states patient is progressing well.
--- NOTE | 2021-05-09 17:53 | NUR ---
Shift Summary Patient successfully extubated on 2 L via NC, SPO2 > 90%. Productive cough, moderate thick white secreations. Patient passed bedside swallow eval and tolerated dinner/fluids well. Left hip dressing C/D/I. Blister on gluteal sulcus, see picture on chart. Redness around glutes as well. Patient denies being in pain. Diamond in place with dark ginny cloudy output. Patients sister updated on care being provided via phone and patients at bedside throughout the day. Will report to oncoming shift. VSS. NSR.
--- NOTE | 2021-05-09 19:50 | NUR ---
Assumed care after report recieved. assessment complete. Alert and oriented, denies needs at this time. lungs clear, coughing up moderate amount of thin clear secreations. Denies needs at this time.
--- NOTE | 2021-05-09 23:00 | NUR ---
Report called to PCU. Transfer by bed to PCU 7
[2021-05-10 04:13] LABS: BASOPHILS ABSOLUTE AUTO 0.04 K/mm3 (0.00-0.23); BASOPHILS PERCENT AUTO 0 % (0-2); EOSINOPHILS ABSOLUTE AUTO 0.34 K/mm3 (0.00-0.68); EOSINOPHILS PERCENT AUTO 3 % (0-6); Hematocrit 30.7 % (37.0-53.0); Hemoglobin 10.2 g/dL (13.5-17.5); IMMATURE GRAN PERCENT AUTO 1 % (0-1); LYMPHOCYTES ABSOLUTE AUTO 1.69 K/mm3 (0.84-5.20); LYMPHOCYTES PERCENT AUTO 17 % (21-46); MONOCYTES ABSOLUTE AUTO 1.06 K/mm3 (0.16-1.47); MONOCYTES PERCENT AUTO 11 % (4-13); Mean Corpuscular HGB 33.9 pg (26.0-34.0); Mean Corpuscular HGB Conc 33.2 g/dL (31.5-36.5); Mean Corpuscular Volume 102 fL (80-100); Mean Platelet Volume 10.2 fL (9.1-12.4); NEUTROPHILS ABSOLUTE AUTO 6.82 K/mm3 (1.96-9.15); NEUTROPHILS PERCENT AUTO 68 % (41-73); Platelet Count 288 K/mm3 (150-400); RDW Coefficient Variation 12.9 % (11.7-14.2); RDW Standard Deviation 47.4 fL (35.1-46.3); Red Blood Cell Count 3.01 M/mm3 (4.30-5.90); White Blood Cell Count 10.05 K/mm3 (4.00-11.30)
[2021-05-10 04:32] LABS: Anion Gap 5 mmol/L (6-16); Blood Urea Nitrogen 25 mg/dL (8-24); Bun/Creatinine Ratio 30.5 (12.0-20.0); CO2, Blood 26 mmol/L (21-32); Calcium, Blood 8.5 mg/dL (8.5-10.1); Chloride, Blood 111 mmol/L (98-108); Creatinine, Blood 0.82 mg/dL (0.60-1.20); Glomerular Filtration Rate >60 (60-); Glucose, Blood 107 mg/dL (70-99); Potassium, Blood 3.6 mmol/L (3.5-5.5); Sodium, Blood 142 mmol/L (136-145)
--- NOTE | 2021-05-10 06:22 | NUR ---
SHIFT SUMMARY PATIENT TRANSFERRED FROM ICU AT APPROXIMETLY 2200 AND FOUND TO BE A&OX4 WITH SOME GENERALIZED WEAKNESS. VERY [place]. TELLES. L HIP PRECUATIONS AND REMAINS BEDREST UNTIL PT CAN CLEAR TO GET UP TODAY. DRESSING C/D/I/.GOOD SENSATION AND COLOR. NO PAIN UNLESS MOVING THAT LEG A LOT. CIWA NEGATIVE. VSS. SR ON THE MONITOR. PRODUCTIVE COUGH WITH THIN SECREATIONS NOTED.CUNNINGHAM PATENT DRAINING TO GRAVITY WITH EDWARD URINE AND SEDIMENT.ENCOROUGING SELF TURNS IN BED AND STRENGTH IMPROVING. FALL PRECAUTIONS IN PLACE. WILL CONTINUE PLAN OF CARE UNTIL REPORT GIVEN TO FEROZ VOGT.
--- NOTE | 2021-05-10 17:47 | NUR ---
PATIENT WAS TRANSFERRED FROM PCU TODAY 05/10/21 AT 1730. THIS NURSE ASSUMED CARE.
--- NOTE | 2021-05-10 17:48 | NUR ---
POD 6 LEFT HIP NAILING PATIENT IS ALERT AND ORIENTED X4. VS ARE WNL AND IS ON RA. PAIN IS MANAGED WITH 2 NORCOS. HE IS TOLERATING PO INTAKE. HE WAS JUST RECENTLY TRANSFERRED FROM PCU. LEFT HIP HAS 2 AQUACEL THAT ARE C/D/I. HE DENIES NUMBNESS AND TINGLING. HE IS ABLE TO MOVE FINGERS AND TOES. PCU NURSE REPORTS HE IS A SBA WITH FWW AND GAIT BELT. CALL LIGHT WITHIN REACH. THE PLAN IS TO EVENTUALLY BE GOING TO A SNF WHEN POSSIBLE AND TO ENCOURAGE TOE TOUCH WT BEARING AMBULATION.
--- NOTE | 2021-05-10 18:06 | NUR ---
PATIENT REFUSED TO HAVE CUNNINGHAM TAKEN OUT TODAY AND WANTS IT TAKEN OUT TOMORROW.
--- NOTE | 2021-05-11 05:07 | NUR ---
PRODUCT APPLICATIONS SCIENTIST SUMMARY NO ACUTE CHANGES THIS SHIFT. PT AAOX4 AND PLEASANT. STILL REPORTING SOME PAIN ON L HIP, MEDICATING WITH 2 TABS NORCO Q6H. BOTH AQUACEL DRESSINGS ON L HIP C/D/I. WILL CONTINUE TO MONITOR.
--- NOTE | 2021-05-11 14:41 | NUR ---
CARE OF PT ASSUMED AT 1300. PT RESTING IN HIS BED ALERT AND ORIENTED BUT FORGETFUL. HE REQUIRES REMINDERS AND FREQUENT RE-EDUCATION. HE WAS ASKING FOR A SHOWER PER LEXUS RINGT PT, PT IS UNABLE TO MAINTAIN WB STATUS TO SAFELY GET TO THE SHOWER. PT OFFERED BEDBATH AND SHAVING SUPPLIES. WILL CONTINUE TO MONITOR.
--- NOTE | 2021-05-11 15:19 | NUR ---
Pt. was alert and in bed. Pt. cautiously welcomed my visit. Established rapport and listened empathetically. There was unsettledness regarding the pts. connection to his ena. Facilitated life review and offered guidance to the pts. concerns about being connected with others. Reinforced helpful attitudes and practices. Pt. displayed evidence interest and engagement. Pt. verbalized his gratitude for thew visit. Pt. requested my name and asked if I would return. Prayed with Pt. I will monitor.
--- NOTE | 2021-05-11 15:56 | NUR ---
PT ADVISED THAT THIS PATIENT WAS NOT YET STRONG ENOUGH TO AMBULATE TO THE BATHROOM AFTER THE PT ASKED FOR A SHOWER. I EXPLAINED WHAT PT HAD TO SAY TO THE MARGARITA IN GREAT DETAIL, OFFERING THE EXAMPLE THAT AMBULATING TO THE BEDSIDE CHAIR IS A VERY TAXING EXPERIENCE FOR HIM. THE MARGARITA STILL STATED THAT HE WANTED TO TAKE A SHOWER REGAURDLESS OF WHAT PHYSICAL THERAPY HAD TO SAY. I OFFERED THE PATIENT A BASIN OF HOT WATER AND SHAVING CREAM SO THAT HE COULD SHAVE HIS FACE WHILE DANGLING AT THE BEDSIDE. THIS ADL BEING WHAT PROMPTED THE PT TO WANT A SHOWER. THE PATIENT SHAVED HIS FACE WITH NO FURTER EVENTS. THE PHYSICAL THERAPIST AND I AMBULATED THE PATIENT TO THE BEDSIDE CHAIR. WHILE THE PT WAS STANDING, I PERFORMED A BRIEF CHANGE AND JOEY CARE. TAB ALARM AND CALL LIGHT IN PLACE.
--- NOTE | 2021-05-11 18:16 | NUR ---
TRACE PITTING EDEMA NOTED IN THE PATIENTS LEFT EXTREMETY. PEDAL AND POSTERIOR TIBIAL PULSES ARE STRONG. PT DOES NOT COMPLAIN OF PAIN WITH PLANTAR FLEXION AND DORSIFLEXION. NURSE NOTIFIED AND ASSESSED A SECOND TIME, TOGETHER. PATIENT HAS BEEN SITTING WITH LEGS IN DEPENDENT POSITION, WITH NO COMPLAINTS OF NUMBNESS OR TINGLING. CAP REFILL NOTED TO BE UNDER THREE SECONDS. WILL CONTINUE TO MONITOR.
--- NOTE | 2021-05-11 18:30 | NUR ---
SHIFT SUMMARY PT HAS BEEN OOB AND UP TO THE CHAIR FOR MUCH OF THE AFTERNOON. PT HAS DIFFICULTY MAINTAINING HIS WB STATUS WHEN TRANSFERING, HE IS A 2 PERSON ASSIST. WAITING FOR PLACEMENT AT SNF ALTHOUGH PT VERBLIZES HE WOULD PREFER TO GO HOME. LLE IS SWOLLEN AND PT HAS TRACE PITTING EDEMA TO L LEG. PAIN MANAGED WITH PO PAIN MEDICATION. PT HAS BEEN ALERT AND ORIENTED T/O THE DAY BUT IS FORGETFUL/NEEDS FREQUENT REMINDERS AND EDUCATION. VSS. WILL MONITOR UNTIL REPORT TO NOC RN.
--- NOTE | 2021-05-12 04:54 | NUR ---
FRUIT II FARMWORKER SUMMARY PT AAOX4 BUT DOES SEEM OFF AT TIMES. SOMETIMES BECOMES HYPER FOCUSED ON RANDOM ILLOGICAL THINGS. PT WAS FOCUSED AT THE BEGINNING OF SHIFT OF CALLING VARIOUS FRIENDS TO BE ABLE TO LIFT HIM INTO HIS HOUSE THIS WEEK. PT DOES NOT SEEM TO UNDERSTAND THAT HE WILL NEED REHAB BEFORE GOING HOME. PT'S ALYSIA CALLED WITH [employer]CERNS OF THESE ODD BEHAVIORS AND STATES THAT SHE HAS NOTICED A GRADUAL DECLINE IN THE PT'S COGNITION OVER THE LAST 6-8 MONTHS. SHE STATES SHE HAS TRIED TO GET PT TO HAVE NEURO ASSESSMENT AT [place] BUT PT WILL DECLINE. AQUACEL DRESSINGS ON L HIP C/D/I, SOME SWELLING STILL NOTED ON LEFT LEG/HIP. PT ABLE TO FULL FLEX AND MOVE ANKLE WITH NO PAIN IN AREA. NO CALF TENDERNESS NOTED. WILL CONTINUE TO MONITOR.
--- NOTE | 2021-05-12 14:48 | NUR ---
Spiritual Care visit. (actual visit 1500 05/11). Pt. was alert and sitting up in bed. Pt. welcomed my visit. Established rapport. Facilitated a life review. Pt. identified the need to be connected with other people of ena. Explored ena and beliefs. Pt. was curious about the [place] NT in his room. Provided pt. with a simple reading plan to get started. Provided Pt. with some good fellowship options in his community. I will plan to pursue this more with him. Pt. verbalized his gratitude for the visit. Asked me for a business card, but since I don't have one, I gave him my name on a sheet of paper. Prayed with pt. Pt. verbalized his appreciation for the visit.
--- NOTE | 2021-05-12 17:45 | NUR ---
SHIFT SUMMARY: POD 8 LEFT HIP GAMMA NAILING NO SIGNIFICANT CHANGES. PATIENT IS ALERT AND ORIENTED X3-4 CAN SOMETIMES BE CONFUSED AND REPEAT QUESTIONS. PATIENT HAS A HIGH BP BUT IS OTHERWISE WNL AND IS ON RA. CONTINUING TO MONITOR BP. PAIN IS MANAGED WITH 2 OXY'S. HE IS TOLERATING PO INTAKE AND IS VOIDING. HE IS A SBA WITH FWW AND GAIT BELT. CALLS APPROPRIATELY. CALL LIGHT WITHIN REACH. [facility] OR TO BE DISCHARGED HOME WITH HOME HEALTH IF POSSIBLE.
--- NOTE | 2021-05-12 18:40 | NUR ---
Pt. was alert and sitting in a chair. Pt. welcomed my visit. Re-established Rapport. Pt. shared how his hosptialization has had an impact on his purpose in life. Explored sources of meaning and purpose. Listened Empathetically. Pt. displayed evidence of restored ena, and a new desire to serve others. Pt. verbalized improved hope, and a new sense of priorities. Pt will continue to make progress strengthening his body through PT. Prayed with Pt. Will continue to monitor his progress and restored ena.
--- NOTE | 2021-05-13 03:50 | NUR ---
PT IS ALERT AND ORIENTED BUT FORGETFUL AND VERY [place]. AWAKE MOST OF THE NIGHT. C/O SORE TRHOAT. LEFT LEG PAINFUL WHEN UP TO THE COMMODE. VOIDING. LEFT HIP WITH AQUECEL DRESSING. BED SORE; DRESSING ON PLACE.
--- NOTE | 2021-05-13 15:28 | NUR ---
SHIFT SUMMARY: POD 9 LEFT HIP GAMMA NAILING PATIENT IS ALERT AND ORIENTED X3-4. PATIENT WILL ASK THE SAME QUESTIONS MULTIPLE TIMES DURING THE DAY. PATIENT BP IS STILL HIGH BUT WILL PROVIDE BP MEDICATIONS AND CONTINUE TO MONITOR. OTHERWISE VS ARE WNL AND IS ON RA. PAIN IS MANAGED WITH 2 PO PAIN MEDICATIONS. LEFT HIP HAS 2 AQUACELS THAT ARE C/D/I. HE IS A 1-2 PERSON SBA WITH FWW AND GAIT BELT. HE IS TOLERATING PO INTAKE AND IS VOIDING. PATIENT IS CURRENTLY BACK IN BED AFTER USING BSC. CALL LIGHT WITHIN REACH. THE PLAN IS TO HAVE HIM BE DISCHARGED TO SNF WHEN A BED IS AVAILABLE.
--- NOTE | 2021-05-14 06:08 | NUR ---
PT IS IN BED AT THIS TIME WHERE HE REMAINS MUCH OF THE NIGHT AND IS RESTING COMFORTABLY. DENIES PAIN AT THIS BUT IS ENCOURAGED TO REPORT PAIN WHEN FELT. HE IS ALERT, AWAKE, AND ORIENTED WITH FLUCTUATION IN HIS MENTATION. HE IS ASSISTED WIT CARE AND ADLS, MEDICATED INDICATED. HIS CALL LIGHT WAS GIVEN TO HIM AND WAS REMINDED TO CALL FOR HELP WHEN ASSISTANCE IS NEEDED HE IS MONITORED.
--- NOTE | 2021-05-14 15:19 | NUR ---
SHIFT SUMMARY: POD 10 LEFT HIP GAMMA NAILING NO SIGNIFICANT CHANGES THIS SHIFT. PATIENT IS ALERT AND ORIENTED X3-4 SINCE HE WILL REPEAT QUESTIONS. VS ARE WNL AND IS ON RA. PAIN IS MANAGED WITH PO MEDICATIONS. LEFT HIP HAS 2 AQUACEL THAT ARE C/D/I. PATIENT IS A SBA WITH FWW AND GAIT BELT. HE IS TOLERATING PO INTAKE AND IS VOIDING. PATIENT REPORTS THE MOST ANNOYING THING FOR HIM IS "THE STRATCH IN MY THROAT". HE IS CURRENTLY UP IN A CHAIR. CALL LIGHT WITHIN REACH. THE PLAN IS TO DISCHARGE TO A SNF WHEN POSSIBLE.
--- NOTE | 2021-05-15 05:41 | NUR ---
PT IS IN BED AT THIS TIME AND IS RESTING IN STABLE CONDTITION. ALERT, AWAKE, AND ORIENTED, ASSISTED WITH CARE AND ADLS. ASSISTED WITH TOILETING AND BATHROOM NEEDS, MEDICATED INDICTAED. CALL LIGHT GIVEN TO HIM AND REMINDED TO CALL FOR HELP WHEN ASSISTANCE IS NEEDED HE IS MONITORED.
--- NOTE | 2021-05-15 19:35 | NUR ---
SHIFT SUMMARY POD12 L GAMMA NAIL, A/O X4, VSS, TOLERATING DIET, PAIN TOLERABLE WITH NO PHARMACOLOGIC INTERVENTIONS TODAY, C/O SORE THROAT R/T RECENT INTUBATION WHICH WAS TREATED c LOZENGES AND COUGH SYRUP (SEE EMAR). PENDING PLACEMENT TO [facility], NO ACUTE EVENTS THIS SHIFT, CALL LIGHT IN REACH, REPORT GIVEN TO DONELL VOGT.
--- NOTE | 2021-05-16 04:53 | NUR ---
PT HAD AN UNEVENTFUL NIGHT. VOIDING. TOOK PAIN MED ONCE. DID NOT TRY TO GET OUT OF THE BED WITHOUT ASSISTANCE. INCISION INTACT.
--- NOTE | 2021-05-16 15:58 | NUR ---
SHIFT SUMMARY POD 13 L GAMMA NAIL, A/OX4, VSS, TOLERATING PO, VOIDING WELL, PAIN HAS BEEN MANAGEABLE THIS SHIFT, WORKED WITH PT TODAY, PT HAS BEEN MORE STEADY ON HIS FEET WHILE AMBULATING. NO ACUTE EVENTS TODAY, CALL LIGHT IN REACH, WILL CTM AND REPORT TO ONCOMING NOC RN.
--- NOTE | 2021-05-17 04:31 | NUR ---
SHIFT SUMMARY A/OX4, 1 ASSIST WITH TRANSFERS. DRESSING TO L. HIP C/D/I. C/O PAIN TO L. HIP, MEDICATED PER EMAR. VSS, NO ACUTE CHANGES AT THIS TIME. BED IN LOWEST POSITION WITH CALL LIGHT IN REACH. WILL CONTINUE TO MONITOR AND REPORT TO ONCOMING RN.
--- NOTE | 2021-05-17 17:30 | NUR ---
summary NO ACUTE CHANGES T/O SHIFT. PT SHOWERED THIS MORNING. IMPULSIVE AT TIMES, LETTING GO OF FWW WHEN STANDING. REORIENTED TO USE OF WALKER FOR SAFETY. PT HAS REDDENED AREA/WHITE BLISTER TO BUTTOCKS AND IN BETWEEN BUTTOCKS. SPRINKLED POWDER TO AREA TO DRY OUT. PT SITTING UP IN BED EATING DINNER AT THIS TIME. CALL LIGHT IN REACH.
--- NOTE | 2021-05-18 04:17 | NUR ---
PT IS IN BED AT THIS TIME WHERE HE REMAINS DURING THE NIGHT AND IS RESTING COMFORTABLY WITH EYES CLOSED, CONDITION IS STABLE. HAS C/O PAIN AND TREATED ACCORDINGLY. HE IS ALERT AND ORIENTED, ASSISTED WITH CARE AND ADLS, ASSISTED WITH BATHROOM AND TOILETING NEEDS, ENCOURAGED TO PERFORM LEG EXERCISES WHILE IN BED TO PROMOTE VENOUS RETURN. HIS CALL LIGHT WAS PLACED NEAR HIM, ANSWERED, AND ENCOURAGED TO CALL FOR HELP WHEN ASSISTANCE IS NEEDED HE IS MONITORED.
--- NOTE | 2021-05-18 17:02 | NUR ---
SUMMARY NO ACUTE CHANGES T/O SHIFT. PT MOTIVATED, STATING PLANNING ON DOING LEG EXERCISES AFTER DINNER. HAS SAT UP ON EDGE OF BED AND AMBULATED IN ROOM. WORKED WITH THERAPY. HAS STAGE 2 PRESSURE ULCER TO BUTTOCKS AND YEAST TO BUTTOCKS AND JOEY AREA. OBTAINED ORDER FOR MICONAZOLE POWDER TO START TONIGHT. PT CAN BE IMPULSIVE AT TIMES BUT A&OX4. CALL LIGHT IN REACH.
--- NOTE | 2021-05-18 18:39 | NUR ---
Pt. was sitting up and finishing dinner. Quickly re-established rapport. Pt. was in good spirits with the progress in his recvoery and a hopeful discharge to rehab. Pt. displayed a growing interest in his spiritual growth. Listened and processed stories and prayed with pt. Pt. displays a healthy attitude moving forward.
--- NOTE | 2021-05-19 04:52 | NUR ---
Pt is in bed at this time where he remains much of the night and is resting comfortably with eyes closed. No change in condition or behavior. Alert and oriented with fluctuation in his orientation noted. Has reported pain and medicated as indicated. Assisted with care and ADLS, assisted with bathroom and toileting needs. Pt encouraged to change position and assisted with the task as needed to help relive redness to his buttocks and promote comfort. He was assisted with other care and ADLs, assisted with toileting and bathroom needs. Her call light was given to him and was encouraged to call for help when assistance is needed as he is monitored.
[2021-05-19 16:49] LABS: Influenza A, PCR NEGATIVE (NEGATIVE); Influenza B, PCR NEGATIVE (NEGATIVE); Resp Syncytial Virus, PCR NEGATIVE (NEGATIVE); SARS-Cov-2 (COVID-19) PCR, MMC NEGATIVE (NEGATIVE)
--- NOTE | 2021-05-19 17:28 | NUR ---
DISCHARGE SUMMARY PT POD #10 FOR L HIP FRACTURE REPAIR. A/O X3 WITH MOMENTS OF IMPULSIVENESS. 1 ASSIST WITH FWW/GB TO GET UP. DRESSING CHANGES TO HIP AND MEPILEX DRESSING APPLIED TO SACRUM. VSS. [place] [facility] [place] [facility] CALLED REPORT TO FACILITY.
--- NOTE | 2021-05-19 18:47 | NUR ---
PT RE-ADMITTED AFTER LEAVING FOR [facility]. [facility] WOULD NOT ACCEPT THE PATIENT BECAUSE THE [place] DID NOT APPROVE HIS PHYSICIAN. PT BACK IN ROOM AND ANGRY.
--- NOTE | 2021-05-20 04:59 | NUR ---
SHIFT SUMMARY NANCY IS S/P SURGICAL REPAIR OF LEFT HIP FRACTURE. HE IS A&0 X3, REQUIRING REORIENTATION TO HIS OWN LIMITATIONS AND CUEING FOR TASKS. HE IS ABLE TO EXPRESS HIS NEEDS. MEPILEX COVERING PRESSURE ULCER ON SACRUM. NO IV ACCESS. ROOM AIR. REGULAR DIET. PER DOCTOR NOTES, HE IS MEDICALLY STABLE FOR DISCHARGE AND AWAITING SNF PLACEMENT.
--- NOTE | 2021-05-20 06:27 | NUR ---
PHONE CALL TO PHYSICIAN RN SPOKE TO DR. VASQUEZ ON THE PHONE, PT HAD HIS IV DC'D YESTERDAY PRIOR TO SNF DECLINING HIS PLACEMENT. DR. VASQUEZ WITH ORDERS FOR NO IV ACCESS AND CHANGE IV PROTONIX 40MG TO PROTONIX 40MG PO.
--- NOTE | 2021-05-20 15:46 | NUR ---
DECUBITUS ULCER PRIOR DRESSING REMOVED, AREA CLEANED WITH STERILE WATER AND 4X4, ARE DRIED, ANTIFUNGAL POWDER APPLIED, NEW COCCYX PAD PLACED. WILL CTM
--- NOTE | 2021-05-21 01:42 | NUR ---
WOUND CARE PERFORMED TO PRESSURE ULCERS FOUND ON COCCYX AND LEFT GLUTEAL CHEEK, - CLEANSED AREA WITH STERILE WATER, PATTED DRY. APPLIED POWDER PER EMAR. COVERED WITH MEPILEX. PT TOLERATED PROCEDURE WELL.
[2021-05-21 04:39] LABS: Hematocrit 33.9 % (37.0-53.0); Hemoglobin 11.2 g/dL (13.5-17.5); Mean Corpuscular HGB 33.1 pg (26.0-34.0); Mean Corpuscular Volume 100 fL (80-100); Mean Platelet Volume 10.3 fL (9.1-12.4); Platelet Count 413 K/mm3 (150-400); RDW Coefficient Variation 12.7 % (11.7-14.2); RDW Standard Deviation 47.1 fL (35.1-46.3); Red Blood Cell Count 3.38 M/mm3 (4.30-5.90); White Blood Cell Count 6.73 K/mm3 (4.00-11.30)
[2021-05-21 05:02] LABS: Anion Gap 7 mmol/L (6-16); Blood Urea Nitrogen 20 mg/dL (8-24); Bun/Creatinine Ratio 22.8 (12.0-20.0); CO2, Blood 28 mmol/L (21-32); Calcium, Blood 9.1 mg/dL (8.5-10.1); Chloride, Blood 107 mmol/L (98-108); Creatinine, Blood 0.88 mg/dL (0.60-1.20); Glomerular Filtration Rate >60 (60-); Glucose, Blood 102 mg/dL (70-99); Potassium, Blood 3.5 mmol/L (3.5-5.5); Sodium, Blood 142 mmol/L (136-145)
--- NOTE | 2021-05-21 06:27 | NUR ---
SHIFT SUMMARY NANCY TURCIOS" IS EAGER TO RETURN HOME. HE IS DESCRIBING MODIFICATIONS TO HIS HOUSE THAT HE WOULD LIKE TO MAKE - INSTALLING A TRAPEZE AND BUILDING RAMPS TO HELP HIS PROPEL HIM VIA WHEELCHAIR. PT C/O PAIN TO LEFT HIP - S/P LEFT HIP FX REPAIR, AND RECEIVED PRN NORCO PER EMAR. INCISION SITE IS C/D/I WITH AQUACELL DRESSING IN PLACE. PT USING URINAL INDEPENDENTLY, VOIDING AT LEAST 1500 ML THIS SHIFT. ROOM AIR. NO IV ACCESS. ORIENTED X 3-4, SLIGHTLY IMPULSIVE. AMBULATES WITH 1 PERSON SBA, GAIT BELT AND FWW. PHYSICAL THERAPY IS RECOMMENDING FURTHER PT AT SNF, PT IS EAGER TO D/C HOME. AWAITING CARE MANAGEMENT ON SATURDAY TO DISCUSS OPTIONS.
--- NOTE | 2021-05-22 04:23 | NUR ---
SHIFT SUMMARY A/O X3. VSS. SLEEPING COMFORTABLY THIS SHIFT. IND IN ROOM USING WALKER AND GB TO MOVE RLE. PAIN TREATED PER EMAR ONE TIME AT BEGINING OF SHIFT. VOIDING WELL. TOLERATING PO INTAKE. WILL CONTINUE TO MONITOR AND REPORT TO ONCOMING RN.
[2021-05-22] MEDS ORDERED: PANT40 PO (12:31)
[2021-05-22] MEDS ORDERED: POLYETHYLENE G500 G1 PO (12:32)
[2021-05-22] MEDS ORDERED: HYDCHL25 PO (12:46)
[2021-05-22] MEDS ORDERED: BENMENLOZ MT (12:48)
[2021-05-22] MEDS ORDERED: Seroquel Xr50 MG PO (12:49)
[2021-05-22] MEDS ORDERED: Vitamin D1000 UNI1 PO (12:50)
--- NOTE | 2021-05-22 15:05 | NUR ---
DISCHARGE: PACKET PRINTED AND PT / PT EDUCATED. PT TO GO HOME WITH HH. PT LEFT AT ABOUT 1445 VIA TRANSPORT.
== END 2021-05-22 14:54 | disposition home health service (06) | DRG 480 ==
LOC: ER 22:07 → SURS 05-02 00:30 → ICUE 05-02 00:30 → ER 05-02 01:16 → SURS 05-02 01:52 → ICUE 05-05 07:14 → PCU 05-09 23:20 → SURS 05-10 17:42
PROVIDERS: Emergency Medicine; Internal Medicine; Internal Medicine Critical Care Medicine; Orthopaedic Surgery; ADMIT Internal Medicine
PROC: 0QH734Z Insertion of Internal Fixation Device into Left Upper Femur, Percutaneous Approach (ICD-10-PCS; 2021-05-03)
PROC: 0BH18EZ Insertion of Endotracheal Airway into Trachea, Via Natural or Artificial Opening Endoscopic (ICD-10-PCS; principal; 2021-05-05)
PROC: 5A1945Z Respiratory Ventilation, 24-96 Consecutive Hours (ICD-10-PCS; 2021-05-05)
DX: S72.142A Displaced intertrochanteric fracture of left femur, initial encounter for closed fracture (principal); J96.02 Acute respiratory failure with hypercapnia; J96.01 Acute respiratory failure with hypoxia; G92.8 Other toxic encephalopathy; F10.230 Alcohol dependence with withdrawal, uncomplicated; N39.0 Urinary tract infection, site not specified; E87.2 Acidosis; W18.30XA Fall on same level, unspecified, initial encounter; I10 Essential (primary) hypertension; E78.5 Hyperlipidemia, unspecified; F10.220 Alcohol dependence with intoxication, uncomplicated; B95.1 Streptococcus, group B, as the cause of diseases classified elsewhere; R45.1 Restlessness and agitation; F17.210 Nicotine dependence, cigarettes, uncomplicated; Z20.822 Contact with and (suspected) exposure to COVID-19; L89.152 Pressure ulcer of sacral region, stage 2; E87.6 Hypokalemia; I48.0 Paroxysmal atrial fibrillation; D72.829 Elevated white blood cell count, unspecified; Z91.018 Allergy to other foods; Z79.899 Other long term (current) drug therapy; Z79.02 Long term (current) use of antithrombotics/antiplatelets
CPT/HCPCS: 0241U; 31500; 36415; 36416; 36600; 51702; 70450; 71045; 72125; 73502; 73552; 73700; 76377; 80048; 80053; 81001; 82803; 82947; 83735; 83880; 84100; 84484; 85025; 85027; 85610; 85730; 87070; 87086; 87147; 87205; 93005; 93010; 93306; 94002; 94003; 94660; 94760; 94762; 97110; 97116; 97162; 97164; 97530; 99285-25; A9270; C1713; C9113; G0480; J0690; J0696; J1100; J1170; J1630; J1650; J1885; J1956; J2060; J2370; J2405; J2704; J3010; J3411; J3480; J7030; J7050; J7120

== ENCOUNTER 2022-02-16 08:22 | Emergency (ER) | payer OTHER ==
[~2022-02-16] VITALS: Ht 182.9 cm; Wt 113.4 kg
[~2022-02-16 08:22] MED LIST changes: +ASPI325 PO; +ATEN25 PO; +ATOR40TA PO; +B-1100 M1 PO; +BENMENLOZ MT; +CHLO25B PO; +CLOP75 PO; +Colace100 MG PO; +FISH OIL-VIT D1 EACH PO; +HYDCHL25 PO; +HYDHCL25 PO; +K-TAB ER20 ME1 PO; +NAPR500 PO; +Norco 10-325 T1 EACH PO; +PANT40 PO; +POLYETHYLENE G500 G1 PO; +POTA10T PO; +Prinivil10 MG PO; +Seroquel Xr50 MG PO; +VITAMIN D325 MC3 PO; +Vitamin B-12100 MCG PO; +Vitamin D1000 UNI1 PO
== END 2022-02-16 10:14 | disposition home or self-care (01) ==
LOC: ER 08:22
DX: I46.9 Cardiac arrest, cause unspecified (principal); I10 Essential (primary) hypertension; I48.91 Unspecified atrial fibrillation; Z91.018 Allergy to other foods; Z79.899 Other long term (current) drug therapy; Z79.82 Long term (current) use of aspirin; E78.5 Hyperlipidemia, unspecified; F17.200 Nicotine dependence, unspecified, uncomplicated
CPT/HCPCS: 31500; 92950; 99285-25